=== PATIENT | male | born 1985 | race Caucasian/White ===

== ENCOUNTER 2017-08-11 22:30 | Emergency (ER) | payer MEDICAID ==
[~2017-08-11] VITALS: Ht 167.6 cm; Wt 104.0 kg
[~2017-08-11 22:30] MED LIST: HYDR1TAB PO
[2017-08-12 00:25] VITALS: BP 138/69
== END 2017-08-12 00:26 ==
LOC: ER 22:31
DX: Z02.89 Encounter for other administrative examinations (principal); G89.29 Other chronic pain; Z79.899 Other long term (current) drug therapy
CPT/HCPCS: 99283

== ENCOUNTER 2018-12-09 22:06 | Emergency (ER) | payer MEDICAID ==
[~2018-12-09] VITALS: Ht 170.2 cm; Wt 99.5 kg
--- NOTE | 2018-12-09 22:41 | NUR ---
DR. HERBERT UPDATED OF PT AND POSSIBILITY OF SHOUDER DISLOCATION (FIRST TIME) AND THAT PT IN SEVERE PAIN. MD TO ORDER IMAGING. PT REPROTS HE STARTED DRINKING VODKA AFTER THE PAIN STARTED, BUT WAS NOT INTOXICATED BEFORE.
[2018-12-09] MEDS ORDERED: HYDROcodone/acetaminophen 10/325mg tab PO ONE (23:30)
[2018-12-09] MEDS ORDERED: naproxen 500mg tablet PO ONE (23:30)
[2018-12-09] MEDS ORDERED: cyclobenzaprine 10mg tablet PO ONE (23:30)
[2018-12-09] MEDS ORDERED: HYDR-4383 PO (23:36)
[2018-12-09] MEDS ORDERED: CYCL-1 PO (23:36)
[2018-12-09] MEDS ORDERED: NAPR-56 PO (23:36)
--- NOTE | 2018-12-09 23:46 | NUR ---
SLING PLACED TO RIGHT SHOULDER, PATIENT VERBALIZED THAT HE WILL USE SLING FOR COMFORT WHEN NEEDED AND WILL USE HIS ARM/ SHOULDER TOLERATED. PATIENT VERBALIZED THAT HE WILL USE HIS SHOULDER TOLERATED TO MAINTAIN HIS ROM.
[2018-12-10 00:01] VITALS: BP 121/67
== END 2018-12-10 00:10 | disposition home or self-care (01) ==
LOC: ER 22:06
DX: M25.511 Pain in right shoulder (principal); M62.838 Other muscle spasm; F10.920 Alcohol use, unspecified with intoxication, uncomplicated; G89.29 Other chronic pain; F17.200 Nicotine dependence, unspecified, uncomplicated; Z98.890 Other specified postprocedural states; Z79.899 Other long term (current) drug therapy; X50.0XXA Overexertion from strenuous movement or load, initial encounter; Y93.89 Activity, other specified; Y92.89 Other specified places as the place of occurrence of the external cause; Y99.8 Other external cause status; Y90.9 Presence of alcohol in blood, level not specified
CPT/HCPCS: 73030; 99284

== ENCOUNTER 2019-02-01 12:12 | Emergency (ER) | payer MEDICAID ==
[~2019-02-01] VITALS: Ht 170.2 cm; Wt 104.5 kg
[~2019-02-01 12:12] MED LIST changes: +CYCL-1 PO; +HYDR-4383 PO
[2019-02-01] MEDS ORDERED: normal saline 1000ML IV soln IVB ONE ×2 (12:25→13:30)
[2019-02-01] MEDS ORDERED: ondansetron/PF 4mg/2ml inj IV ONE (12:25)
[2019-02-01] MEDS ORDERED: fentaNYL/PF 50MCG/1 ML 2ML syringe IV ONE (12:25)
[2019-02-01 13:13] LABS: BASOPHILS # (AUTO) 0.1 X10'3 (0-0.2); BASOPHILS % (AUTO) 0.6 % (0-1); EOSINOPHILS # (AUTO) 0.1 X10'3 (0-0.9); EOSINOPHILS % (AUTO) 0.8 % (0-6); HEMATOCRIT 52.3 % (42.0-52.0); LYMPHOCYTES # (AUTO) 3.5 X10'3 (1.1-4.8); LYMPHOCYTES % (AUTO) 35.3 % (21-51); MEAN CORPUSCULAR HEMOGLOBIN 32.3 PG (27.0-31.0); MEAN CORPUSCULAR HGB CONC 35.3 g/dL (33.0-36.5); MEAN CORPUSCULAR VOLUME 91.3 FL (78-98); MEAN PLATELET VOLUME 8.7 FL (7.4-10.4); MONOCYTES # (AUTO) 0.6 X10'3 (0-0.9); MONOCYTES % (AUTO) 5.6 % (2-12); NEUTROPHILS # (AUTO) 5.7 X10'3 (1.8-7.7); NEUTROPHILS % (AUTO) 57.7 % (42-75); PLATELET COUNT 173 X10'3 (140-440); RED BLOOD COUNT 5.73 X10'6 (4.70-6.10); RED CELL DISTRIBUTION WIDTH 12.9 % (11.5-14.5); WHITE BLOOD COUNT 9.9 X10'3 (4.5-11.0)
[2019-02-01 13:16] LABS: HEMOGLOBIN 18.5 g/dl (14.0-17.9)
[2019-02-01 13:21] LABS: COLOR,URINE AMBER (Yellow); GLUCOSE, URINE NEGATIVE (Neg); KETONES,URINE 15 mg/dl (Neg); LEUKOCYTE ESTERASE ,URINE NEGATIVE (Neg); NITRITES, URINE NEGATIVE (Neg); OCCULT BLOOD,URINE LARGE (Neg); PH,URINE 6.5 (4.8-8.0); PROTEIN,URINE >=300 mg/dl (Neg)
[2019-02-01 13:22] LABS: CLARITY,URINE SLIGHTLY CLOUDY (Clear); UA COLLECTION TYPE CLN CATCH MIDSTREAM
[2019-02-01 13:24] LABS: PARTIAL THROMBOPLASTIN TIME 29 SECONDS (22-32)
[2019-02-01 13:27] LABS: ALANINE AMINOTRANSFERASE 69 U/L (12-78); ALBUMIN 3.8 G/DL (3.4-5.0); ALBUMIN/GLOBULIN RATIO 0.9 (1.1-1.5); ALKALINE PHOSPHATASE 114 IU/L (46-116); ANION GAP 14 (8-16); ASPARTATE AMINO TRANSFERASE 65 U/L (10-37); BILIRUBIN,TOTAL 0.9 MG/DL (0.1-1.0); BLOOD UREA NITROGEN 6 MG/DL (7-18); BUN/CREATININE RATIO 7.8 (5.4-32.0); CALCIUM 8.7 MG/DL (8.5-10.1); CHLORIDE 99 MMOL/L (99-107); CREATINE KINASE 251 U/L (39-308); CREATININE 0.77 MG/DL (0.60-1.10); GLUCOSE 97 MG/DL (70-104); POTASSIUM 3.2 MMOL/L (3.5-5.1); SODIUM 140 MMOL/L (135-145); TOTAL PROTEIN 8.2 G/DL (6.4-8.2); eGFR > 90 ML/MIN
[2019-02-01 13:29] LABS: RBC,URINE 20-50 /HPF (0-2); WBC,URINE 0-4 /HPF (0-4)
[2019-02-01 13:30] LABS: BACTERIA,URINE FEW /HPF (Neg); FINE GRANULAR CAST 0-3 /LPF (NEGATIVE); MUCUS STRANDS MODERATE /LPF (Neg); SQUAMOUS EPITHELIAL CELL,UR FEW /LPF (FEW)
[2019-02-01] MEDS ORDERED: ketorolac trometh. 30mg/ml inj. IV ONE (13:30)
[2019-02-01 13:31] LABS: URINE AMPHETAMINE SCREEN NEGATIVE (Neg); URINE BARBITUATE SCREEN NEGATIVE (Neg); URINE BENZODIAZEPINES SCREEN NEGATIVE (Neg); URINE CANNABINOID SCREEN POSITIVE (Neg); URINE COCAINE SCREEN NEGATIVE (Neg); URINE METHADONE SCREEN NEGATIVE (Neg); URINE OPIATE SCREEN NEGATIVE (Neg); URINE PHENCYCLIDINE SCREEN NEGATIVE (Neg)
[2019-02-01 13:37] LABS: ETHANOL 0.342 GM/DL (0.0-0.010)
[2019-02-01 14:49] VITALS: BP 159/93
== END 2019-02-01 14:52 | disposition home or self-care (01) ==
LOC: ER 12:12
DX: S09.90XA Unspecified injury of head, initial encounter (principal); E86.0 Dehydration; R55 Syncope and collapse; E87.6 Hypokalemia; F10.129 Alcohol abuse with intoxication, unspecified; I10 Essential (primary) hypertension; G89.29 Other chronic pain; F12.90 Cannabis use, unspecified, uncomplicated; Z98.890 Other specified postprocedural states; Z60.2 Problems related to living alone; Z79.899 Other long term (current) drug therapy; Y90.0 Blood alcohol level of less than 20 mg/100 ml; W18.39XA Other fall on same level, initial encounter; Y93.89 Activity, other specified; Y92.89 Other specified places as the place of occurrence of the external cause; Y99.8 Other external cause status
CPT/HCPCS: 36415; 70450; 71046; 72125; 80053; 80305; 80320; 81001; 82550; 85025; 85610; 85730; 96361; 96374; 96375; 99284; J1885; J2405; J3010; J7030